=== PATIENT | female | born 1970 | race Caucasian/White ===

== ENCOUNTER 2018-06-02 14:24 | Inpatient (IN) | payer MEDICAID, OTHER ==
[~2018-06-02] VITALS: Ht 162.6 cm; Wt 95.3 kg
[~2018-06-02 14:24] MED LIST: ACET1TAB12 PO; ASPI1TAB8 PO
[2018-06-02] MEDS ORDERED: ONDANSETRON HCL 4MG/2ML INJ IV STA (18:36)
[2018-06-02] MEDS ORDERED: MAGNESIUM/ALUMINUM HYDROXIDE/SIMETHICONE 30ML UDC PO ONE (18:45)
[2018-06-02] MEDS ORDERED: FAMOTIDINE 20MG/2ML VIAL IV ONE (18:45)
[2018-06-02] MEDS ORDERED: ASPIRIN 81MG TABLET PO ONE (18:45)
[2018-06-02 19:02] LABS: BASOPHILS % 0.9 % (0.0-2.0); EOSINOPHILS % 2.5 % (0.0-5.0); HEMATOCRIT. 45.1 % (36.0-48.0); HEMOGLOBIN. 15.3 g/dL (12.0-16.0); LYMPHOCYTES % 21.1 % (20.0-50.0); MEAN CORPUSCULAR VOLUME 88.4 fL (81.0-99.0); NEUTROPHILS % 68.5 % (40.0-76.0); PLATELET 246 x1000/uL (130-400); RED BLOOD CELL COUNT 5.09 mill/uL (4.2-5.4); RED CELL DISTRIBUTION WIDTH 13.2 % (11.6-14.6)
[2018-06-02 19:04] LABS: CHLORIDE 105 mEq/L (98-107)
[2018-06-02 19:08] LABS: PARTIAL THROMBOPLASTIN TIME 26.8 sec (23.4-31.0); PROTHROMBIN TIME 9.8 sec (9.6-11.0)
[2018-06-02 19:09] LABS: ETHANOL BLOOD < 10 mg/dL
[2018-06-02 19:12] LABS: HCG SCREEN NEGATIVE
[2018-06-02 20:21] LABS: CLARITY URINE CLEAR (CLEAR); COLOR URINE YELLOW (YELLOW); KETONES URINE NEGATIVE (NEGATIVE); LEUKOCYTE ESTERASE URINE NEGATIVE (NEGATIVE); NITRITE URINE NEGATIVE (NEGATIVE); OCCULT BLOOD URINE NEGATIVE (NEGATIVE); PROTEIN URINE NEGATIVE (NEGATIVE); SPECIFIC GRAVITY URINE 1.005 (1.005-1.030); UROBILINOGEN URINE 0.2 E.U./dL (0.2-1.0)
[2018-06-02 20:33] LABS: *AMPHETAMINES SCREEN URINE NEGATIVE (NEGATIVE)
[2018-06-02 20:34] LABS: *BARBITURATES SCREEN URINE NEGATIVE (NEGATIVE); *BENZODIAZEPINES SCREEN URINE NEGATIVE (NEGATIVE); *COCAINE SCREEN URINE NEGATIVE (NEGATIVE); METHADONE URINE SCREEN NEGATIVE (NEGATIVE); OPIATES URINE SCREEN NEGATIVE (NEGATIVE); PHENCYCLIDINE URINE SCREEN NEGATIVE (NEGATIVE)
[2018-06-02 20:35] LABS: CANNABINOID URINE SCREEN NEGATIVE (NEGATIVE)
[2018-06-02] MEDS ORDERED: MORPHINE SULFATE 4 MG/ML CPJ (NOT FOR IM USE) IV ONE (21:15)
[2018-06-02] MEDS ORDERED: ONDANSETRON HCL 4MG/2ML INJ IV ONE (21:15)
[2018-06-03] MEDS ORDERED: OMEP20TA2 PO (04:25)
[2018-06-03] MEDS ORDERED: BENA10TA10 PO (04:25)
[2018-06-03 04:33] VITALS: BP 145/78
[2018-06-03] MEDS: NITROGLYCERIN OINT 1GM/INCH UDPKT TD SCH ×2 (05:29→14:00)
[2018-06-03] MEDS ORDERED: OMEPRAZOLE 20MG CAPSULE EXTENDED RELEASE PO SCH (07:20)
[2018-06-03 07:28] LABS: BASOPHILS % 1.2 % (0.0-2.0); EOSINOPHILS % 2.5 % (0.0-5.0); HEMATOCRIT. 39.8 % (36.0-48.0); HEMOGLOBIN. 13.2 g/dL (12.0-16.0); LYMPHOCYTES % 20.5 % (20.0-50.0); MEAN CORPUSCULAR HEMOGLOBIN 29.5 pg (28.0-32.0); MEAN PLATELET VOLUME 10.1 fl (7.4-10.4); MONOCYTES % 8.7 % (2.0-8.0); NEUTROPHILS % 67.1 % (40.0-76.0); PLATELET 210 x1000/uL (130-400); RED BLOOD CELL COUNT 4.47 mill/uL (4.2-5.4); RED CELL DISTRIBUTION WIDTH 12.8 % (11.6-14.6)
[2018-06-03 08:00] VITALS: BP 110/72
[2018-06-03] MEDS ORDERED: REGADENOSON 0.4 MG/5 ML IV SCH (08:15)
[2018-06-03] MEDS ORDERED: ENOXAPARIN 30MG/0.3ML SYR SUBCUT SCH (09:00)
[2018-06-03] MEDS ORDERED: ASPIRIN 325MG EC TABLET PO SCH (09:00)
[2018-06-03] MEDS ORDERED: METOPROLOL TARTRATE 25MG TABLET PO SCH (09:00)
[2018-06-03] MEDS ORDERED: ONDANSETRON HCL 4MG/2ML INJ IV PRN (09:45)
[2018-06-03] MEDS ORDERED: HYDROCODONE/ACETAMINOPHEN 5/325MG TABLET PO PRN ×2 (09:45→14:45)
[2018-06-03 10:11] LABS: T4 FREE 1.14 ng/dL (0.76-1.46)
[2018-06-03] MEDS ORDERED: REGADENOSON 0.4 MG/5 ML IV ONE (11:42)
[2018-06-03 11:52] VITALS: BP 113/70
[2018-06-03] MEDS ORDERED: SUMATRIPTAN SUCCINATE 6MG/0.5ML VIAL SUBCUT NR (15:30)
[2018-06-03 15:35] VITALS: BP 129/85
[2018-06-03 17:24] VITALS: BP 113/70
== END 2018-06-03 17:47 | disposition home or self-care (01) | DRG 203 ==
LOC: ER 14:24 → 6WST 21:25 → EDBEDREQTM 21:30 → EDBEDREQ 21:30 → ENRESERV 06-03 02:59
PROVIDERS: ADMIT Internal Medicine; ATTEND Internal Medicine
DX: M94.0 Chondrocostal junction syndrome [Tietze] (principal); E87.8 Other disorders of electrolyte and fluid balance, not elsewhere classified; E66.9 Obesity, unspecified; I10 Essential (primary) hypertension; G43.909 Migraine, unspecified, not intractable, without status migrainosus; I16.0 Hypertensive urgency; I25.10 Atherosclerotic heart disease of native coronary artery without angina pectoris; I25.2 Old myocardial infarction; Z79.899 Other long term (current) drug therapy; Z98.51 Tubal ligation status; Z71.3 Dietary counseling and surveillance
CPT/HCPCS: 36415; 71045; 78452; 80048; 80061; 80305; 80320; 83036; 83880; 84439; 84443; 84484; 84703; 85379; 86850; 86900; 93005; 93017; 93306; 93970; 96374; 96375; 99285; A9500; J1650; J2270; J2405; J2785; J3030; J3490; G0480

== ENCOUNTER 2023-01-04 11:43 | Emergency (ER) | payer MEDICAID, MEDICARE, OTHER ==
[~2023-01-04] VITALS: Ht 162.6 cm; Wt 91.0 kg
[~2023-01-04 11:43] MED LIST changes: +BENA10TA74 PO; +OMEP20TA23 PO
[2023-01-04 11:53] VITALS: O2SAT 96
[2023-01-04 13:05] LABS: ALANINE AMINOTRANSFERASE 16 IU/L (10-49); ALBUMIN 4.4 g/dL (3.2-4.8); ASPARTATE AMINOTRANSFERASE 17 IU/L (<34); BILIRUBIN TOTAL 0.6 mg/dL (0.1-1.0); CALCIUM 9.3 mg/dL (8.7-10.4); CARBON DIOXIDE 28 mEq/L (21-32); CHLORIDE 104 mEq/L (98-107); CREATININE 1.2 mg/dL (0.6-1.0); GLUCOSE 105 mg/dL (70-105); POTASSIUM 3.6 mEq/L (3.5-5.1); PROTEIN TOTAL 7.6 g/dL (6.0-8.3); SODIUM 140 mEq/L (136-145); UREA NITROGEN BLOOD 8 mg/dL (9-23)
[2023-01-04 13:07] LABS: BASOPHILS % 0.7 % (0.0-2.0); EOSINOPHILS % 0.6 % (0.0-5.0); HEMATOCRIT. 42.1 % (36.0-48.0); HEMOGLOBIN. 14.1 g/dL (12.0-16.0); LYMPHOCYTES % 12.2 % (20.0-50.0); MEAN CORPUSCULAR HEMOGLOBIN 29.3 pg (28.0-32.0); MEAN CORPUSCULAR HGB CONC 33.4 g/dL (31.0-37.0); MEAN CORPUSCULAR VOLUME 87.5 fL (81.0-99.0); MEAN PLATELET VOLUME 9.8 fl (7.4-10.4); NEUTROPHILS % 76.5 % (40.0-76.0); PLATELET 220 x1000/uL (130-400); RED BLOOD CELL COUNT 4.81 mill/uL (4.2-5.4); RED CELL DISTRIBUTION WIDTH 13.5 % (11.6-14.6); WHITE BLOOD COUNT 8.9 x1000/uL (4.5-11.0)
[2023-01-04 13:14] LABS: TROPONIN I HIGH SENSITIVITY < 4 ng/L (3.0-34)
[2023-01-04 16:36] LABS: TROPONIN I HIGH SENSITIVITY < 4 ng/L (3.0-34)
[2023-01-04] MEDS ORDERED: IBUPROFEN 400MG TABLET PO ONE (16:45)
[2023-01-04] MEDS ORDERED: ACETAMINOPHEN 325MG TABLET PO ONE (16:45)
[2023-01-04] MEDS ORDERED: IBUP-2028 MT (17:00)
[2023-01-04] MEDS ORDERED: NIRM1TAB PO (17:00)
[2023-01-04] MEDS ORDERED: TOPUD PO (17:00)
[2023-01-04 17:41] VITALS: BP 139/49; PULSE 98; RESP 16; TEMP 98
== END 2023-01-04 17:44 | disposition home or self-care (01) ==
LOC: ER 11:43
DX: U07.1 COVID-19 (principal); I25.2 Old myocardial infarction; I10 Essential (primary) hypertension; Z86.51 Personal history of combat and operational stress reaction
CPT/HCPCS: 99285; 71045; 87426; 80053; 83880; 85025; 84484; 87804 ×2; 36415; 93005; C9803

== ENCOUNTER 2024-05-01 14:13 | Emergency (ER) | payer MEDICAID, MEDICARE ==
[~2024-05-01] VITALS: Ht 165.1 cm; Wt 90.7 kg
[~2024-05-01 14:13] MED LIST changes: +IBUP-2028 MT; +NIRM1TAB PO; +TOPUD PO
[2024-05-01 14:16] VITALS: TEMP 37.1; O2SAT 98; O2SAT 99
[2024-05-01] MEDS ORDERED: METOCLOPRAMIDE HCL 10MG/2ML VIAL IV ONE (15:00)
[2024-05-01 16:21] LABS: BASOPHILS % 1.1 % (0.0-2.0); EOSINOPHILS % 3.6 % (0.0-5.0); HEMATOCRIT. 42.3 % (36.0-48.0); HEMOGLOBIN. 13.9 g/dL (12.0-16.0); LYMPHOCYTES % 23.2 % (20.0-50.0); MEAN CORPUSCULAR HEMOGLOBIN 28.4 pg (28.0-32.0); MEAN CORPUSCULAR HGB CONC 32.9 g/dL (31.0-37.0); MEAN CORPUSCULAR VOLUME 86.4 fL (81.0-99.0); MEAN PLATELET VOLUME 9.3 fl (7.4-10.4); MONOCYTES % 8.4 % (2.0-8.0); NEUTROPHILS % 63.7 % (40.0-76.0); PLATELET 259 x1000/uL (130-400); RED CELL DISTRIBUTION WIDTH 13.1 % (11.6-14.6); WHITE BLOOD COUNT 8.3 x1000/uL (4.5-11.0)
[2024-05-01 16:28] LABS: POTASSIUM 3.7 mEq/L (3.5-5.1)
[2024-05-01 16:29] LABS: CALCIUM 9.4 mg/dL (8.7-10.4)
[2024-05-01] MEDS: LACTATED RINGERS 1,000 ML IV SCH (16:50)
[2024-05-01 17:13] VITALS: BP 149/89; PULSE 92; RESP 18
[2024-05-01] MEDS: KETOROLAC 15MG/ML VIAL IV ONE (17:13)
[2024-05-01] MEDS: METOCLOPRAMIDE HCL 10MG/2ML VIAL IV NR (17:13)
[2024-05-01] MEDS: ACETAMINOPHEN 1000MG/100ML 100 ML IV ONE (17:20)
== END 2024-05-01 21:06 | disposition still patient (30) ==
LOC: ER 14:13
DX: R51.9 Headache, unspecified (principal); H66.92 Otitis media, unspecified, left ear; I25.2 Old myocardial infarction; I10 Essential (primary) hypertension; Z98.51 Tubal ligation status; Z79.82 Long term (current) use of aspirin; Z79.899 Other long term (current) drug therapy
CPT/HCPCS: 99285; 96374; 70450; 96375; 96361; 80048; 85025; 36415; J1885; J2765; J0131